=== PATIENT | female | born 1975 | race Caucasian/White ===

== ENCOUNTER 2017-06-16 01:09 | Inpatient (IN) | payer OTHER ==
[~2017-06-16] VITALS: Ht 165.1 cm; Wt 59.5 kg
[2017-06-16] MEDS ORDERED: KETOROLAC 30 MG/1 ML IVPush ONE (01:30)
[2017-06-16] MEDS ORDERED: SODIUM CHLORIDE 0.9% 1,000ML IVBOLUS ONE (01:30)
[2017-06-16] MEDS ORDERED: SODIUM CHLORIDE FLUSH 10ML SYR IVF ONE (01:30)
[2017-06-16] MEDS ORDERED: ONDANSETRON 2MG/ML, 2ML IVPush ONE (01:30)
[2017-06-16] MEDS ORDERED: KETOROLAC 30 MG/1 ML ONE (01:50)
[2017-06-16] MEDS ORDERED: MORPHINE SULFATE 4 MG/ML, 1ML ONE ×2 (01:50→02:06)
[2017-06-16] MEDS ORDERED: ONDANSETRON 2MG/ML, 2ML ONE (01:51)
[2017-06-16] MEDS: MORPHINE SULFATE 4 MG/ML, 1ML IVPush PRN ×4 (01:52→13:33)
[2017-06-16 01:56] LABS: HEMATOCRIT 34.7 % (34.6-47.8); HEMOGLOBIN 11.7 g/dL (11.7-16.4); WHITE BLOOD COUNT 8.2 x10^3/uL (3.4-10)
[2017-06-16 02:08] LABS: ASPARTATE AMINO TRANSFERASE 11 U/L (15-37); BLOOD UREA NITROGEN 18 mg/dL (7-18)
[2017-06-16 03:17] LABS: PATH.CAST-FLAG NOT PRESENT; SPERM-FLAG NOT PRESENT; SRC-FLAG NOT PRESENT; XTAL-FLAG NOT PRESENT; YLC-FLAG NOT PRESENT
[2017-06-16] MEDS ORDERED: CEFTRIAXONE PMX 1GM/50ML 50 ML ONE (03:37)
[2017-06-16] MEDS ORDERED: SODIUM CHLORIDE 0.9% 1,000 ML IV ONE (03:39)
[2017-06-16] MEDS ORDERED: HYDROmorphone 1 MG/ML, 1ML IVPush PRN (04:00)
[2017-06-16] MEDS ORDERED: CEFTRIAXONE PMX 1GM/50ML 50 ML IV ONE (04:00)
[2017-06-16] MEDS ORDERED: MORPHINE SULFATE 4 MG/ML, 1ML IVPush PRN (04:00)
[2017-06-16] MEDS ORDERED: SODIUM CHLORIDE FLUSH 10ML SYR IVF PRN (04:00)
[2017-06-16] MEDS ORDERED: ONDANSETRON 2MG/ML, 2ML IVPush PRN ×3 (04:00→17:30)
[2017-06-16 04:30] VITALS: BP 117/65
[2017-06-16 06:20] VITALS: BP 100/63
[2017-06-16] MEDS ORDERED: KETOROLAC 30 MG/1 ML IVPush PRN (08:00)
[2017-06-16] MEDS: LACTATED RINGERS 1,000 ML IV SCH ×3 (08:38→21:02)
[2017-06-16 13:47] VITALS: BP 98/61
[2017-06-16] MEDS ORDERED: FENTANYL PF 100 MCG/2ML ONE (15:32)
[2017-06-16] MEDS ORDERED: MIDAZOLAM 1 MG/ML, 2ML ONE (15:33)
[2017-06-16] MEDS ORDERED: DEXAMETHASONE 4 MG/ML, 1ML ONE (16:54)
[2017-06-16] MEDS ORDERED: PROPOFOL 10 MG/ML, 20ML ONE (16:54)
[2017-06-16] MEDS ORDERED: OXYcodone 5 MG/5 ML ORAL.SOL UDC PO PRN (17:30)
[2017-06-16] MEDS ORDERED: MEPERIDINE/PF 25MG/0.5ML IVPush PRN (17:30)
[2017-06-16] MEDS ORDERED: LABETALOL 5MG/ML, 20ML IV PRN (17:30)
[2017-06-16] MEDS ORDERED: ACETAMINOPHEN 325 MG TABLET PO PRN (17:30)
[2017-06-16] MEDS ORDERED: FENTANYL PF 100 MCG/2ML IV PRN (17:30)
[2017-06-16] MEDS ORDERED: HYDROmorphone 1 MG/ML, 1ML IV PRN (17:30)
[2017-06-16] MEDS ORDERED: PROMETHAZINE 25 MG/ML, 1ML IV PRN (17:30)
[2017-06-16] MEDS ORDERED: OXYcodone 5 MG/5 ML ORAL.SOL UDC ONE (17:50)
[2017-06-16] MEDS ORDERED: ACETAMINOPHEN 650 MG/20.3 ML UDC ONE (17:50)
[2017-06-16 18:58] VITALS: BP 92/49
[2017-06-16] MEDS ORDERED: KETOROLAC 30 MG/1 ML IV PRN (19:00)
[2017-06-16] MEDS ORDERED: morphine SULFATE 10 MG/ML, 1ML IV PRN (19:00)
[2017-06-16] MEDS ORDERED: ONDANSETRON 2MG/ML, 2ML IV PRN (19:00)
[2017-06-16] MEDS ORDERED: TAMSULOSIN 0.4 MG CAP.ER.24H PO SCH (21:00)
[2017-06-17 01:30] VITALS: BP 72/43
[2017-06-17 03:27] VITALS: BP 86/47
[2017-06-17] MEDS: LACTATED RINGERS 1,000 ML IV SCH ×2 (05:47→13:35)
[2017-06-17 05:51] VITALS: BP 92/47
[2017-06-17 07:30] VITALS: BP 92/51
[2017-06-17 13:40] VITALS: BP 93/48
== END 2017-06-17 18:00 | disposition home or self-care (01) | DRG 669 ==
LOC: ED 02:19 → EDIP 03:39 → 4WST 04:22
PROVIDERS: ADMIT Urology; ATTEND Urology
PROC: 0TC78ZZ Extirpation of Matter from Left Ureter, Via Natural or Artificial Opening Endoscopic (ICD-10-PCS; principal; 2017-06-16 16:30)
DX: N13.2 Hydronephrosis with renal and ureteral calculous obstruction (principal); R17 Unspecified jaundice
CPT/HCPCS: 36415; 74000; 74176; 76001; 80053; 81001; 83690; 84703; 85025; 87086; 96361; 96374; 96375; J0696; J1100; J1885; J2250; J2405; J2704; J3010; C1758; C1769; J7030; J7120

== ENCOUNTER 2017-06-18 08:28 | Emergency (ER) | payer OTHER ==
[~2017-06-18] VITALS: Ht 165.1 cm; Wt 58.8 kg
[2017-06-18] MEDS ORDERED: SODIUM CHLORIDE 0.9% 1,000 ML IV ONE (09:11)
[2017-06-18] MEDS ORDERED: ONDANSETRON 2MG/ML, 2ML ONE (09:24)
[2017-06-18] MEDS ORDERED: HYDROmorphone 1 MG/ML, 1ML ONE ×2 (09:24→13:38)
[2017-06-18] MEDS: HYDROmorphone 1 MG/ML, 1ML IVPush PRN ×2 (09:26→13:40)
[2017-06-18] MEDS ORDERED: SODIUM CHLORIDE FLUSH 10ML SYR IVF ONE (09:30)
[2017-06-18] MEDS ORDERED: ONDANSETRON 2MG/ML, 2ML IVPush ONE (09:30)
[2017-06-18 09:39] LABS: BLOOD UREA NITROGEN 10 mg/dL (7-18)
[2017-06-18 10:03] LABS: HEMATOCRIT 32.2 % (34.6-47.8); HEMOGLOBIN 10.8 g/dL (11.7-16.4); WHITE BLOOD COUNT 6.7 x10^3/uL (3.4-10)
[2017-06-18] MEDS ORDERED: KETOROLAC 30 MG/1 ML IVPush ONE (12:30)
[2017-06-18] MEDS ORDERED: KETOROLAC 30 MG/1 ML ONE (12:31)
[2017-06-18 14:10] VITALS: BP 108/46
== END 2017-06-18 14:14 | disposition home or self-care (01) ==
LOC: ED 08:55
DX: N13.2 Hydronephrosis with renal and ureteral calculous obstruction (principal); N20.0 Calculus of kidney; R31.9 Hematuria, unspecified
CPT/HCPCS: 36415; 71020; 74176; 80048; 81001; 82040; 85025; 96361; 96374; 96375; 96376; 99285; J1170; J1885; J2405; J7030

== ENCOUNTER 2017-06-20 18:28 | Observation (INO) | payer OTHER ==
[~2017-06-20] VITALS: Ht 165.1 cm; Wt 63.3 kg
[2017-06-20 19:27] LABS: HEMATOCRIT 31.4 % (34.6-47.8); HEMOGLOBIN 10.8 g/dL (11.7-16.4)
[2017-06-20] MEDS ORDERED: SODIUM CHLORIDE FLUSH 10ML SYR IVF ONE (19:30)
[2017-06-20] MEDS ORDERED: SODIUM CHLORIDE 0.9% 1,000ML IVBOLUS ONE (19:30)
[2017-06-20] MEDS ORDERED: ONDANSETRON 2MG/ML, 2ML IVPush ONE (19:30)
[2017-06-20 19:37] LABS: ASPARTATE AMINO TRANSFERASE 10 U/L (15-37); BLOOD UREA NITROGEN 13 mg/dL (7-18)
[2017-06-20] MEDS ORDERED: DIPHENHYDRAMINE 50 MG/ML, 1ML IVPush ONE (20:00)
[2017-06-20] MEDS ORDERED: METOCLOPRAMIDE 5 MG/ML, 2ML IVPush ONE (20:00)
[2017-06-20] MEDS ORDERED: HYDROmorphone 2 MG/ML, 1ML IVPush PRN (20:00)
[2017-06-20] MEDS ORDERED: HYDROmorphone 1 MG/ML, 1ML IVPush PRN (20:00)
[2017-06-20] MEDS ORDERED: KETOROLAC 30 MG/1 ML IVPush ONE (20:00)
[2017-06-20] MEDS ORDERED: HYDROmorphone 1 MG/ML, 1ML ONE (20:02)
[2017-06-20] MEDS ORDERED: KETOROLAC 30 MG/1 ML ONE ×2 (20:02→23:27)
[2017-06-20] MEDS ORDERED: DIPHENHYDRAMINE 50 MG/ML, 1ML ONE (20:02)
[2017-06-20] MEDS ORDERED: METOCLOPRAMIDE 5 MG/ML, 2ML ONE (20:02)
[2017-06-20] MEDS ORDERED: FENTANYL PF 100 MCG/2ML ONE (23:17)
[2017-06-20] MEDS ORDERED: MIDAZOLAM 1 MG/ML, 2ML ONE (23:17)
[2017-06-20] MEDS ORDERED: CEFAZOLIN 1,000 MG ONE (23:27)
[2017-06-20] MEDS ORDERED: ONDANSETRON 2MG/ML, 2ML ONE (23:27)
[2017-06-20] MEDS ORDERED: PROPOFOL 10 MG/ML, 20ML ONE (23:27)
[2017-06-20] MEDS ORDERED: DEXAMETHASONE 4 MG/ML, 1ML ONE (23:27)
[2017-06-21] MEDS ORDERED: FENTANYL PF 100 MCG/2ML IV PRN
[2017-06-21] MEDS ORDERED: PROMETHAZINE 25 MG/ML, 1ML IV PRN
[2017-06-21] MEDS ORDERED: MEPERIDINE/PF 25MG/0.5ML IVPush PRN
[2017-06-21] MEDS ORDERED: OXYcodone 5 MG/5 ML ORAL.SOL UDC PO PRN
[2017-06-21] MEDS ORDERED: HYDROmorphone 1 MG/ML, 1ML IV PRN
[2017-06-21] MEDS ORDERED: LACTATED RINGERS 1,000 ML IV SCH (01:30)
[2017-06-21] MEDS ORDERED: ONDANSETRON 2MG/ML, 2ML IVPush PRN ×2 (01:30)
[2017-06-21] MEDS ORDERED: ACETAMINOPHEN 325 MG TABLET PO PRN ×2 (01:30)
[2017-06-21] MEDS ORDERED: HYDROmorphone 1 MG/ML, 1ML IVPush PRN (01:30)
[2017-06-21] MEDS ORDERED: HYDROcodone/APAP 5/325 TABLET PO PRN (01:30)
[2017-06-21 02:09] VITALS: BP 113/71
[2017-06-21 03:31] VITALS: BP 116/72
[2017-06-21 07:18] VITALS: BP 108/61
[2017-06-21 09:32] VITALS: BP_SYST 103; BP_SYST 98; BP_DIAS 62; BP_DIAS 65
== END 2017-06-21 10:37 | disposition home or self-care (01) ==
LOC: ED 22:24 → EDIP 22:26 → INTOOBSV 22:26 → ED 22:44 → 4NOR 06-21 01:01 → DCLOUNGE 06-21 10:37
PROVIDERS: ADMIT Urology; ATTEND Urology
DX: N13.2 Hydronephrosis with renal and ureteral calculous obstruction (principal); N21.0 Calculus in bladder; N23 Unspecified renal colic; Z87.442 Personal history of urinary calculi
CPT/HCPCS: 36415; 52332; 74000; 76000; 76775; 80053; 84703; 85025; 96361; 96374; 96375; 99285; C1769; C2617; G0378; J0690; J1100; J1170; J1200; J1885; J2250; J2405; J2704; J2765; J3010; J7030